=== PATIENT | female | born 1975 | race Caucasian/White ===

== ENCOUNTER 2017-11-05 06:52 | Inpatient (IN) | payer BC ==
[~2017-11-05] VITALS: Ht 165.1 cm; Wt 67.4 kg
[2017-11-05] MEDS ORDERED: ceFAZolin 1GM/50ML 50 ML IV ONE ×2 (07:35→09:15)
[2017-11-05] MEDS ORDERED: BUPIVACAINE 0.25% INJ 50ML VIAL ONE (08:17)
[2017-11-05] MEDS ORDERED: LIDOCAINE 1% HCL (LOCAL ANESTH.) INJ 20ML MDV ONE (08:17)
[2017-11-05] MEDS ORDERED: ceFAZolin 1GM VL ONE (08:42)
[2017-11-05] MEDS: SODIUM CHLORIDE 0.9% 1,000 ML IV SCH ×2 (09:05→17:30)
[2017-11-05] MEDS ORDERED: ONDANSETRON HCL 4 MG/2 ML VIAL IV PRN (09:15)
[2017-11-05] MEDS ORDERED: NITROGLYCERIN 0.4 MG SL TAB SL PRN (09:15)
[2017-11-05] MEDS ORDERED: ACETAMINOPHEN 500 MG TAB PO PRN (09:15)
[2017-11-05] MEDS ORDERED: fentaNYL CITRATE 5 ML ONE (09:23)
[2017-11-05] MEDS ORDERED: MIDAZOLAM HCL 1MG/1ML-2 ML VIAL ONE (09:23)
[2017-11-05] MEDS ORDERED: ROCURONIUM 10MG/ML 10ML VIAL IV ONE (09:24)
[2017-11-05] MEDS ORDERED: PROPOFOL 10 MG/ML 20 ML IV ONE (09:24)
[2017-11-05] MEDS: amLODIPine BESYLATE 5 MG TAB PO SCH (10:00)
[2017-11-05] MEDS: HYDROXYCHLOROQUINE SULFATE 200 MG TAB PO SCH ×2 (10:00→21:38)
[2017-11-05] MEDS ORDERED: MORPHINE SULFATE INJECTION 1 ML ONE (10:08)
[2017-11-05] MEDS ORDERED: CONJ ESTROGENS 0.625MG/GM VAG CRM 30GM PV ONE (10:58)
[2017-11-05] MEDS: PILOCARPINE HCL 1% OPTH(EYE) SOL 15ML EACHEYE SCH ×3 (12:00→22:00)
[2017-11-05] MEDS: HYDROCORTISONE 10 MG TAB PO SCH ×2 (12:05→18:00)
[2017-11-05 12:32] VITALS: BP 150/68
[2017-11-05] MEDS ORDERED: TRAM50TA2 PO (12:51)
[2017-11-05] MEDS ORDERED: CYA100I IM (12:51)
[2017-11-05] MEDS ORDERED: HYDR5TAB60 PO (12:51)
[2017-11-05] MEDS ORDERED: HYDR200T OR (12:51)
[2017-11-05] MEDS ORDERED: PILO5TAB10 PO (12:51)
[2017-11-05] MEDS ORDERED: GABA100C9 PO (12:51)
[2017-11-05] MEDS ORDERED: AMLO5TAB2 PO (12:51)
[2017-11-05] MEDS ORDERED: DONE10TA17 PO (12:51)
[2017-11-05] MEDS ORDERED: ESTR10IN2 IM (12:51)
[2017-11-05] MEDS ORDERED: TRIA0.25 PO (12:51)
[2017-11-05 13:00] VITALS: BP 150/68
[2017-11-05] MEDS: GABAPENTIN 400 MG CAP PO SCH ×2 (14:14→21:38)
[2017-11-05] MEDS: MORPHINE SULFATE 4 MG/ML SYR/VIAL IV PRN ×2 (14:40→22:46)
[2017-11-05] MEDS ORDERED: DOCUSATE SOD 100 MG CAP PO PRN (16:45)
[2017-11-05 17:00] VITALS: BP 137/79
[2017-11-05] MEDS: MORPHINE SULF INJ 2 MG/ML SYRINGE 1ML IV PRN (18:44)
[2017-11-05] MEDS: traMADol HCL 50 MG TAB PO PRN (21:39)
[2017-11-05 22:00] VITALS: BP 140/85
[2017-11-05] MEDS ORDERED: traZODone HCL 50 MG TAB PO SCH (22:00)
[2017-11-06] MEDS: HYDROCORTISONE 10 MG TAB PO SCH ×3 (00:16→12:00)
[2017-11-06] MEDS: SODIUM CHLORIDE 0.9% 1,000 ML IV SCH ×2 (01:05→09:36)
[2017-11-06] MEDS: MORPHINE SULFATE 4 MG/ML SYR/VIAL IV PRN (04:47)
[2017-11-06 05:00] VITALS: BP 124/78
[2017-11-06] MEDS: GABAPENTIN 400 MG CAP PO SCH (05:43)
[2017-11-06] MEDS: PILOCARPINE HCL 1% OPTH(EYE) SOL 15ML EACHEYE SCH ×2 (05:43→12:00)
[2017-11-06] MEDS: HYDROXYCHLOROQUINE SULFATE 200 MG TAB PO SCH (05:43)
[2017-11-06] MEDS: traMADol HCL 50 MG TAB PO PRN (05:48)
[2017-11-06 06:35] LABS: Basophils # (auto) 0 uL; Basophils % (auto) 0.1 % (0.0-2.0); Eosinophils # (auto) 0 uL; Eosinophils % (auto) 0.2 % (0.0-7.0); Hematocrit 41.6 % (36.0-46.0); Hemoglobin 13.6 g/dL (12.2-16.2); Lymphocytes # (auto) 0.9 uL; Lymphocytes % (auto) 5.4 % (10.0-50.0); Mean Corpuscular Hemoglobin 31.2 pg (28.0-32.0); Mean Corpuscular Hgb Conc. 32.6 g/dL (32.0-36.0); Mean Corpuscular Volume 95.5 fL (80.0-100.0); Monocytes # (auto) 1.1 uL; Monocytes % (auto) 6.7 % (0.0-12.0); Neutrophils % (auto) 87.6 % (37.0-80.0); Platelet Count (auto) 203 10^3/uL (140-450); Red Blood Cells 4.36 10^6/uL (4.0-5.20); Red Cell Distribution Width 14.9 % (11.8-14.3)
[2017-11-06] MEDS ORDERED: HYDR10T OR (06:52)
[2017-11-06 06:54] LABS: BUN/Creatinine Ratio 10.4; Calcium 7.5 mg/dL (8.5-10.1); Potassium 3.8 mmol/L (3.5-5.1)
[2017-11-06 09:00] VITALS: BP 130/87
[2017-11-06] MEDS: amLODIPine BESYLATE 5 MG TAB PO SCH (09:36)
[2017-11-06] MEDS: MORPHINE SULF INJ 2 MG/ML SYRINGE 1ML IV PRN (09:37)
== END 2017-11-06 13:00 | disposition home or self-care (01) | DRG 742 ==
LOC: SUR 06:52 → TELE-CENTR 06:53
PROVIDERS: ADMIT Obstetrics & Gynecology; ATTEND Internal Medicine
PROC: 0UT54ZZ Resection of Right Fallopian Tube, Percutaneous Endoscopic Approach (ICD-10-PCS; 2017-11-05)
PROC: 0UT04ZZ Resection of Right Ovary, Percutaneous Endoscopic Approach (ICD-10-PCS; 2017-11-05)
PROC: 0UBG4ZZ Excision of Vagina, Percutaneous Endoscopic Approach (ICD-10-PCS; 2017-11-05)
PROC: 0JQC3ZZ Repair Pelvic Region Subcutaneous Tissue and Fascia, Percutaneous Approach (ICD-10-PCS; 2017-11-05)
PROC: 8E0W4CZ Robotic Assisted Procedure of Trunk Region, Percutaneous Endoscopic Approach (ICD-10-PCS; 2017-11-05)
PROC: 0TSD4ZZ Reposition Urethra, Percutaneous Endoscopic Approach (ICD-10-PCS; principal; 2017-11-05 09:21)
DX: N81.10 Cystocele, unspecified (principal); E27.40 Unspecified adrenocortical insufficiency; N39.3 Stress incontinence (female) (male); I10 Essential (primary) hypertension; M35.00 Sjogren syndrome, unspecified; Z72.0 Tobacco use; Z88.8 Allergy status to other drugs, medicaments and biological substances
CPT/HCPCS: 36415; 80048; 85025; 86850; 86900; 86901; 88302; C1771; J0690; J2001; J2250; J2704; J3490